=== PATIENT | female | born 1940 | race Caucasian/White ===

== ENCOUNTER → 2021-07-04 | Outpatient (CLI) | payer MEDICARE ==
--- NOTE | 2021-07-04 21:09 | CONS ---
CONSULTATION DATE OF SERVICE: 07/04/2021 80-year-old lady has [facility] for possible obstructive sleep apnea-hypopnea syndrome. HISTORY OF PRESENT ILLNESS/SLEEP WAKE EVALUATION: SLEEP SCHEDULE: Patient's usual sleep schedule from 9:30/10 p.m. until 8 a.m. FALLING ASLEEP: She does have problems with falling asleep. Has TV set in bedroom. DURING SLEEP: She usually sleeps on the side position. According to her , she has very loud snoring. She wakes up from sleep every 2-3 hours with dry mouth, episodes of gasping for air and nocturia. Positive history of restless legs, sweating. DURING THE DAY/SLEEP WAKE EVALUATION: No history of hypnagogic hallucinations, sleep paralysis or cataplexy. [place] Sleepiness Scale significantly increased to 13. The patient may take one nap afternoon. 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 PAST SURGICAL HISTORY: Breast cyst surgery, partial hysterectomy, surgery for carpal tunnel syndrome on the right side. SOCIAL HISTORY: Negative for smoking or using alcohol. FAMILY HISTORY: Hypertension arthritis, heart problems. REVIEW OF SYSTEMS: Multiple awakenings from sleep, sleepiness during the day. Presently, no chest pain, abdominal pain, stool in the bladder, urine. PHYSICAL EXAMINATION: GENERAL: lady without distress. BP 138/78, HR 92, RR 15, height 5 feet 3-1/2, weight 229, body mass index 39.9, temperature 98.1, oxygen saturation at room air 94%. Oropharynx: Extremely low position of soft palate, Mallampati 4, wide neck 17 inches in circumference. NECK: Supple, no JVD. Thyroid is not palpable. LUNGS: Clear to percussion and to auscultation. Good air exchange. No wheezing or rhonchi. HEART: S1, S2 regular. No murmurs, gallops, or rubs. ABDOMEN: Obesity. Soft and nontender. Bowel sounds are present. No organomegaly appreciated. EXTREMITIES: 1+ ankle edema. 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 Cranial nerves 2 to 7 intact. There is no fasciculation or atrophy. noted. No focal deficits observed. IMPRESSION: 1. Loud snoring, multiple awakenings from sleep every 2 hours with dry mouth and nocturia extremely low position of soft palate, Mallampati 4, wide neck 17 inches in circumference, sleepiness. [place] Sleepiness Scale increased to 13. Obstructive sleep apnea-hypopnea syndrome. 2. Obesity, body mass index 39.9. 3. Hypertension. 4. Pre diabetes. 5. History of sciatic nerve problems. 6. Status post back surgery. 7. Status post partial hysterectomy. 8. Status post surgery for carpal tunnel syndrome on the right side. PLAN: 1. Home sleep apnea test for evaluation of patient breathing during sleep. 2. CPAP/BiPAP titration if sleep study confirms obstructive sleep apnea-hypopnea syndrome. 3. Preferable position during sleep on the side. 4. No driving if patient feels any sleepiness. 5. I will see patient for follow up visit to explain results of testing and following plan. Thank you very much for referring this patient for consultation. Sincerely, Zenon Payne MD, PhD, FAASM Diplomat of [place] [employer] Sleep Medicine Board of [place] [employer] [facility] [place] MMODL / MARLEEN: [id number] /
== END ==
LOC: SLEEP 15:24
PROVIDERS: ATTEND Internal Medicine
DX: G47.33 Obstructive sleep apnea (adult) (pediatric) (principal); R35.1 Nocturia; E66.9 Obesity, unspecified; I10 Essential (primary) hypertension; R73.03 Prediabetes; Z90.711 Acquired absence of uterus with remaining cervical stump; Z98.890 Other specified postprocedural states; Z68.39 Body mass index [BMI] 39.0-39.9, adult
CPT/HCPCS: 99202